=== PATIENT | female | born 1965 | race Caucasian/White ===

== ENCOUNTER 2019-07-11 16:51 | Emergency (ER) | payer MEDICARE ==
[~2019-07-11] VITALS: Ht 162.6 cm; Wt 80.0 kg
[2019-07-11] MEDS ORDERED: KETOROLAC 60MG/2ML VIAL IM STA (18:17)
[2019-07-11] MEDS ORDERED: TETANUS, DIPHTHERIA, PERTUSSIS VAC/PF 0.5ML (>7YR OLD) IM ONE (19:45)
[2019-07-11] MEDS ORDERED: BACITRACIN ZINC OINT UDPKT TOP ONE (19:45)
[2019-07-11 19:51] VITALS: BP 128/79
== END 2019-07-11 19:53 | disposition home or self-care (01) ==
LOC: ER 16:51
DX: S61.213A Laceration without foreign body of left middle finger without damage to nail, initial encounter (principal); W26.8XXA Contact with other sharp object(s), not elsewhere classified, initial encounter; Y93.89 Activity, other specified; Y92.89 Other specified places as the place of occurrence of the external cause; Y99.8 Other external cause status
CPT/HCPCS: 73140; 90471; 90715; 96372; 99283; J1885